=== PATIENT | male | born 1970 | race Caucasian/White ===

== ENCOUNTER 2019-01-16 12:31 | Observation (INO) | payer OTHER ==
--- NOTE | 2019-01-16 12:43 | PDOC ---
History of Present Illness - General Chief Complaint: Pain Stated Complaint: ABD PAIN Time Seen by Provider: 01/16/19 12:40 History Source: Patient Exam Limitations: No Limitations - History of Present Illness Initial Comments: 48 yo m w a pmh of ulcerative colitis, anemia, diverticulitis associated with peritonitis which required a partial colectomy, GERD, pituitary adenoma, vasovagal syncope, and hemorrhoids presents to the [facility] er BIBEMS with the CC of abdominal pain which he believes is a result of taking prednisone. The story goes that the patient was originally diagnosed with a sinus infection a few weeks ago which worsened and ultimately caused the patient to have pneumonia. He admits to recently taking amoxicillin, azithromycin and bactrim in the past few weeks for his sinus infections and pneumonia. The patient also states that he was taking prednisone as part of his PNA treatment and every time he takes prednisone it chews up his stomach and causes him significant gastric reflux pain. The patient states that today he started experiencing multiple episodes of bloody diarrhea which were associated with severe lower abdominal pain without radiation rated 5/10 in intensity right now that was associated with a significant amount of generalized weakness making it difficult for the patient to walk. He also endorses nausea but no emesis. The patient states his Hb was low on Wednesday at 11.4 The patient denies having chest pain, SOB, difficulty breathing, dysuria, frequency, urgency, constipation, back pain, vertigo, headache, blurry vision, neck pain, numbness, tingling or chills. PCP: Dr. Brown from [facility] Pin Cleaner: Dr. Blanton Endo: Dr. Giraldo PSH: Partial colectomy, 3 titanium plates in jaw, deviated septum correction Allergies: NKA, NKDA Social Hx: Drinks recreationally, denies smoking or other substance usage Past History - Past Medical History Allergies/Adverse Reactions: Allergies Allergy/AdvReac Type Severity Reaction Status Date / Time No Known Allergies Allergy Verified 01/16/19 12:38 COPD: No - Suicide/Smoking/Psychosocial Hx Smoking History: Never smoked Have you smoked in the past 12 months: No Information on smoking cessation initiated: No Hx Alcohol Use: No Drug/Substance Use Hx: No Review of Systems - Review of Systems Able to Perform ROS?: Yes Comments:: CONSTITUTIONAL: Present: Fever, fatigue Absent: no chills EYES: Absent: visual changes ENT: Absent: ear pain, no sore throat CARDIOVASCULAR: Absent: chest pain, no palpitations RESPIRATORY: Absent: cough, no SOB GI: Present: Abdominal pain, nausea, bloody diarrhea Absent: no vomiting, no constipation GENITOURINARY: Absent: dysuria, no frequency, no hematuria MUSKULOSKELETAL: Absent: back pain, no arthralgia, no myalgia SKIN: Absent: rash NEURO: Absent: headache *Physical Exam - Vital Signs Last Vital Signs Temp Pulse Resp BP Pulse Ox 97.0 F L 100 H 16 99/78 100 01/16/19 12:31 01/16/19 12:31 01/16/19 12:31 01/16/19 12:31 01/16/19 12:31 - Physical Exam Comments: GENERAL: The patient is lying down on his right side in pain. Well-appearing, well- nourished. HEENT: Normocephalic, atraumatic. PERRL, EOM intact. CARDIOVASCULAR: Tachycardic rate. Normal S1, S2. Regular rhythm. PULMONARY: No evidence of respiratory distress. Lungs clear to auscultation bilaterally. No wheezing, rales or rhonchi. ABDOMEN: Generalized lower abdominal discomfort to palpation. Normal bowel sounds. Abdomen is still soft and non-distended. No rebound or guarding. No organomegaly. Surgical scar in left lower abdomen. EXTREMITIES: Normal ROM in all four extremities. No gross deformities. SKIN: Warm, dry. No rash NEUROLOGICAL: No focal neurological deficits. Rectal Exam: positive: hemorrhoids Moderate Sedation - Procedure Monitoring Vital Signs: Procedure Monitoring Vital Signs Temperature 97.0 F L 01/16/19 12:31 Pulse Rate 100 H 01/16/19 12:31 Respiratory Rate 16 01/16/19 12:31 Blood Pressure 99/78 18 12:31 O2 Sat by Pulse Oximetry (%) 100 01/16/19 12:31 ED Treatment Course - LABORATORY CBC & Chemistry Diagram: 01/16/19 13:30 01/16/19 13:30 Medical Decision Making - Medical Decision Making 48 yo m w a pmh of ulcerative colitis, anemia, diverticulitis associated with peritonitis which required a partial colectomy, GERD, pituitary adenoma, vasovagal syncope, and hemorrhoids presents to the [facility] er BIBEMS with the CC of abdominal pain which he believes is a result of taking prednisone. The story goes that the patient was originally diagnosed with a sinus infection a few weeks ago which worsened and ultimately caused the patient to have pneumonia. He admits to recently taking amoxicillin, azithromycin and bactrim in the past few weeks for his sinus infections and pneumonia. The patient also states that he was taking prednisone as part of his PNA treatment and every time he takes prednisone it chews up his stomach and causes him significant gastric reflux pain. The patient states that today he started experiencing multiple episodes of bloody diarrhea which were associated with severe lower abdominal pain without radiation rated 5/10 in intensity right now that was associated with a significant amount of generalized weakness making it difficult for the patient to walk. He also endorses nausea but no emesis. The patient states his Hb was low on Wednesday at 11.4 VS: Tachyardic, borderline hypotensive. DDx IBNLT: UC exacerbation, colitis, diverticulitis, infectious bloody diarrhea - C- Diff vs Camply vs salmo vs shige vs Ecoli [id number], anemia, peritonitis, perforation, obstruction, hemorrhoids Plan: Labs, Urine, CTAP, CXR, EKG, IV hydration, GI consult, Analgesia, jodee, pepcid, maalox, heme occult, C-diff, re-asses. CTAP shows concentric rectal wall thickening, and mildly dilated fluid filled small bowel loop in the lower pelvis. Patient has not experienced a bloody bowel movement since admission to the ER. - He has a stool cup for us to send in to test for C-diff Will admit patient to Med/Surg for further care to rule out C-diff and observe and take care of patient *DC/Admit/Observation/Transfer Diagnosis at time of Disposition: Ulcerative colitis - Discharge Dispostion Condition at time of disposition: Stable Decision to Admit order: Yes - Referrals - Patient Instructions - Post Discharge Activity
[2019-01-16] MEDS ORDERED: SODIUM CHLORIDE 1,000 ML IV STA (12:56)
[2019-01-16] MEDS ORDERED: FAMOTIDINE 20 MG/50 ML IVPB 20 MG/50 ML MG IVPB ONE ×2 (12:56→13:31)
[2019-01-16] MEDS ORDERED: ACETAMINOPHEN 1000 MG/100 ML VIAL (NON FORMULARY) IVPB ONE (12:56)
[2019-01-16] MEDS ORDERED: ONDANSETRON 4 MG/2 ML VIAL IVPUSH ONE (12:57)
[2019-01-16] MEDS ORDERED: ACETAMINOPHEN INJECTION 100 ML IVPB ONE (13:06)
[2019-01-16] MEDS ORDERED: ONDANSETRON 4 MG/2 ML VIAL ONE ×2 (13:06→13:31)
[2019-01-16] MEDS ORDERED: MAG HYDROX/AL HYDROX/SIMETH 30 ML UNIT-DOSE CUP PO ONE (13:20)
[2019-01-16] MEDS ORDERED: MAG HYDROX/AL HYDROX/SIMETH 30 ML UNIT-DOSE CUP ONE (13:30)
[2019-01-16 14:03] LABS: BASO % 0.1 % (0-2.0); EOS % 0.1 % (0-4.5); HEMATOCRIT 35.1 % (35.4-49); LYMPH % 4.2 % (8-40); MCH 28.3 pg (25.7-33.7); MCHC 34.1 g/dl (32.0-35.9); MEAN CELL VOLUME 82.9 fl (80-96); MEAN PLT VOLUME 8.4 fl (7.5-11.1); NEUT % 83.6 % (42.8-82.8); PLATELET COUNT 293 K/MM3 (134-434); RBC 4.23 M/mm3 (4.00-5.60); WHITE BLOOD COUNT 3.6 K/mm3 (4.0-10.0)
[2019-01-16 14:30] LABS: ALBUMIN 2.8 g/dl (3.4-5.0); ALK PHOS 47 U/L (45-117); ANION GAP 9 MMOL/L (8-16); BILIRUBIN,TOTAL 0.4 mg/dL (0.2-1); BLOOD UREA NITROGEN 24 mg/dL (7-18); CALCIUM 7.9 mg/dL (8.5-10.1); CHLORIDE 108 mmol/L (98-107); CO2 23 mmol/L (21-32); GLUCOSE,RANDOM 111 mg/dL (74-106); LIPASE 74 U/L (73-393); SGOT/AST 16 U/L (15-37); SGPT/ALT 26 U/L (13-61); SODIUM 140 mmol/L (136-145); TOT PROT 6.2 g/dl (6.4-8.2)
--- NOTE | 2019-01-16 14:30 | PDOC ---
Attending Attestation - HPI HPI: 01/16/19 14:43 The patient is a 48 year old male, with a significant past medical history of ulcerative colitis (multiple flare-ups per month, not all requiring hospitalization), anemia, diverticulitis (associated with peritonitis s/p a partial colectomy), GERD, pituitary adenoma, vasovagal syncope, and hemorrhoids , who presents to the emergency department with, abdominal pain and bloody diarrhea. Patient notes recently taking azithromycin, amoxicillin, and bactrim for a sinus infection and is now currently on a tapering Prednisone for pneumonia. He denies any recent fevers, chills, headache or dizziness. He denies any recent chest pain or shortness of breath. He denies any recent dysuria, frequency, urgency or hematuria. Allergies: NKDA Past surgical history: Partial colectomy, 3 titanium plates in jaw, deviated septum correction Social History: Social alcohol usage. Nonsmoker. Denies recreational drug use. Primary Care Physician: Dr. Brown from [facility] Chemistry Quality Control Analyst: Dr. Blanton - Physicial Exam PE: 01/16/19 14:44 GENERAL: Awake, alert, and fully oriented, in no acute distress HEAD: No signs of trauma NECK: Normal ROM +ABDOMEN: Pain to the LLQ, RLQ, and periumbilical region. Well-healed abdominal scars. Soft. No guarding, no rebound. No masses EXTREMITIES: Normal range of motion, no edema. No clubbing or cyanosis. No cords, erythema, or tenderness NEUROLOGICAL: Cranial nerves II through XII grossly intact. Normal speech. SKIN: Warm, Dry, normal turgor, no rashes or lesions noted. <Russell Ridley - Last Filed: 01/16/19 14:43> - Resident Resident Name: Rufino Lewis - ED Attending Attestation I have performed the following: I have examined & evaluated the patient, The case was reviewed & discussed with the resident, I agree w/resident's findings & plan, Exceptions are as noted - Medical Decision Making 01/16/19 14:18 A portion of this note was documented by scribe services under my direction. I have reviewed the details of the note, within reason, and agree with the documentation with the following case summary and management plan written by me. Patient treated in the ED. Nursing notes are reviewed and incorporated into the medical decision-making. Vital signs reviewed. Peripheral IV access obtained by the nurse, laboratory studies are drawn and sent, reviewed and interpreted by myself. Vital Signs Temp Pulse Resp BP Pulse Ox 97.0 F L 100 H 16 99/78 100 01/16/19 12:31 01/16/19 12:31 01/16/19 12:31 01/16/19 12:31 01/16/19 12:31 48-year-old male with past medical history of ulcerative colitis presents with lower abdominal pain and bloody stools. Approximately 1 month ago, the patient started develop a sinus infection the progressively led to a pneumonia. The patient has been treated with multiple antibiotics including Bactrim, amoxicillin and so forth. The patient's currently on a prednisone taper and has been taking it but reports that its worsening his acid reflux. Today, the patient started noticing notable stool episodes with blood in them as well as lower abdominal pain. Denies fevers. Came to the ER for further evaluation. Differential includes ulcer colitis flareup, C. difficile, colitis, other acute abdominal pathologies, diverticular bleed, diverticulitis. The patient should obtain a CAT scan abdomen pelvis and labs. If hemoglobin is less than 7, consider transfusion. The patient may benefit from an observation given the blood in the stools and potential ulcer colitis flare. 01/16/19 16:33 CBC, BMP 01/16/19 13:30 01/16/19 13:30 CMP Sodium 140 mmol/L (136-145) 01/16/19 13:30 Potassium 4.0 mmol/L (3.5-5.1) 01/16/19 13:30 Chloride 108 mmol/L (98-107) H 01/16/19 13:30 Carbon Dioxide 23 mmol/L (21-32) 01/16/19 13:30 Anion Gap 9 MMOL/L (8-16) 01/16/19 13:30 BUN 24 mg/dL (7-18) H 01/16/19 13:30 Creatinine 1.0 mg/dL (0.55-1.3) 01/16/19 13:30 Creat Clearance w eGFR > 60 (>60) 01/16/19 13:30 Random Glucose 111 mg/dL (74-106) H 01/16/19 13:30 Calcium 7.9 mg/dL (8.5-10.1) L 01/16/19 13:30 Total Bilirubin 0.4 mg/dL (0.2-1) 01/16/19 13:30 AST 16 U/L (15-37) 01/16/19 13:30 ALT 26 U/L (13-61) 01/16/19 13:30 Alkaline Phosphatase 47 U/L (45-117) 01/16/19 13:30 Total Protein 6.2 g/dl (6.4-8.2) L 01/16/19 13:30 Albumin 2.8 g/dl (3.4-5.0) L 01/16/19 13:30 Lipase 74 U/L (73-393) 01/16/19 13:30 Labs reviewed. Pt's imaging pending. Pt signed out to Dr. Bashir for further evaluation and management. <Tej Montoya - Last Filed: 01/16/19 16:33> Attestations - Attestations 01/16/19 14:45 Documentation prepared by Russell Ridley, acting as medical health researcher for Tej Montoya MD. <Russell Ridley - Last Filed: 01/16/19 14:43>
[2019-01-16 14:46] LABS: INR 1.2 (0.83-1.09); PROTHROMBIN TIME (PATIENT) 14.2 SEC (9.7-13.0)
[2019-01-16 15:34] LABS: URINE APPEARANCE SLCLOUDY; URINE BILIRUBIN NEGATIVE (<2.0 mg/dL); URINE COLOR YELLOW; URINE GLUCOSE (UA) NEGATIVE (NEGATIVE); URINE KETONE NEGATIVE (NEGATIVE); URINE LEUK ESTERASE NEGATIVE (NEGATIVE); URINE NITRITE NEGATIVE (NEGATIVE); URINE PROTEIN 1+ (NEGATIVE); URINE UROBILINOGEN NEGATIVE mg/dL (0.2-1.0)
[2019-01-16 15:58] LABS: URINE MUCUS MANY
[2019-01-16] MEDS ORDERED: SODIUM CHLORIDE 0.9% 500 ML INFUS.BAG IV ONE (18:33)
--- NOTE | 2019-01-16 20:57 | HP ---
Admitting History and Physical - Primary Care Physician PCP: Abdon Chun - Admission History of Present Illness: 48 yo m w a pmh of ulcerative colitis, anemia, diverticulitis associated with peritonitis which required a partial colectomy, GERD, pituitary adenoma, vasovagal syncope, and hemorrhoids presents to the [facility] er BIBEMS with the CC of abdominal pain which he believes is a result of taking prednisone. The story goes that the patient was originally diagnosed with a sinus infection a few weeks ago which worsened and ultimately caused the patient to have pneumonia. He admits to recently taking amoxicillin, azithromycin and bactrim in the past few weeks for his sinus infections and pneumonia. The patient also states that he was taking prednisone as part of his PNA treatment and every time he takes prednisone it chews up his stomach and causes him significant gastric reflux pain. The patient states that today he started experiencing multiple episodes of bloody diarrhea which were associated with severe lower abdominal pain without radiation rated 5/10 in intensity right now that was associated with a significant amount of generalized weakness making it difficult for the patient to walk. - Past Medical History Gastrointestinal: Yes: Ulcerative Colitis - Smoking History Smoking history: Never smoked Have you smoked in the past 12 months: No - Alcohol/Substance Use Hx Alcohol Use: No Home Medications - Allergies Allergies/Adverse Reactions: Allergies Allergy/AdvReac Type Severity Reaction Status Date / Time No Known Allergies Allergy Verified 01/16/19 12:38 - Home Medications Home Medications: Ambulatory Orders Budesonide [Uceris (Nonformulary)] 9 mg PO DAILY 01/16/19 Ferrous Sulfate [Slow Fe] 45 mg PO DAILY 01/16/19 Prednisone [Deltasone] 20 mg PO DAILY 01/16/19 Physical Examination Vital Signs: Vital Signs Temperature 99.4 F 01/16/19 18:06 Pulse Rate 85 01/16/19 18:06 Respiratory Rate 18 01/16/19 18:06 Blood Pressure 102/63 01/16/19 18:06 O2 Sat by Pulse Oximetry (%) 99 01/16/19 18:06 Constitutional: Yes: No Distress HENT: Yes: Atraumatic Neck: Yes: Supple Cardiovascular: Yes: Regular Rate and Rhythm Respiratory: Yes: CTA Bilaterally Gastrointestinal: Yes: Normal Bowel Sounds Extremities: Yes: WNL Edema: No Peripheral Pulses WNL: Yes Neurological: Yes: Alert, Oriented Labs: CBC, BMP 01/16/19 13:30 01/16/19 13:30 Imaging - Results Cat Scan: Report Reviewed Problem List - Problems (1) Ulcerative colitis Assessment/Plan: npo for now c diff pending gi eval ivf Code(s): K51.90 - ULCERATIVE COLITIS, UNSPECIFIED, WITHOUT COMPLICATIONS (2) Diarrhea Code(s): R19.7 - DIARRHEA, UNSPECIFIED (3) Rectal bleeding Assessment/Plan: monitor Code(s): K62.5 - HEMORRHAGE OF ANUS AND RECTUM Assessment/Plan Laboratory Tests 01/16/19 01/16/19 01/16/19 13:30 13:30 13:30 WBC 3.6 L RBC 4.23 Hgb 12.0 Hct 35.1 L MCV 82.9 MCH 28.3 MCHC 34.1 RDW 15.0 Plt Count 293 MPV 8.4 Absolute Neuts (auto) 3.0 Neutrophils % 83.6 H Lymphocytes % 4.2 L Monocytes % 12.0 H Eosinophils % 0.1 Basophils % 0.1 Nucleated RBC % 0 PT with INR 14.20 H INR 1.20 H Sodium 140 Potassium 4.0 Chloride 108 H Carbon Dioxide 23 Anion Gap 9 BUN 24 H Creatinine 1.0 Creat Clearance w eGFR > 60 Random Glucose 111 H Lactic Acid Calcium 7.9 L Total Bilirubin 0.4 AST 16 ALT 26 Alkaline Phosphatase 47 Total Protein 6.2 L Albumin 2.8 L Lipase 74 Urine Color Urine Appearance Urine pH Ur Specific [place] Urine Protein Urine Glucose (UA) Urine Ketones Urine Blood Urine Nitrite Urine Bilirubin Urine Urobilinogen Ur Leukocyte Esterase Urine WBC (Auto) Urine RBC (Auto) Urine Mucus Blood Type Antibody Screen 01/16/19 01/16/19 01/16/19 13:30 15:00 15:24 WBC RBC Hgb Hct MCV MCH MCHC RDW Plt Count MPV Absolute Neuts (auto) Neutrophils % Lymphocytes % Monocytes % Eosinophils % Basophils % Nucleated RBC % PT with INR INR Sodium Potassium Chloride Carbon Dioxide Anion Gap BUN Creatinine Creat Clearance w eGFR Random Glucose Lactic Acid 2.1 H Calcium Total Bilirubin AST ALT Alkaline Phosphatase Total Protein Albumin Lipase Urine Color Yellow Urine Appearance Slcloudy Urine pH 5.0 Ur Specific [place] 1.027 Urine Protein 1+ H Urine Glucose (UA) Negative Urine Ketones Negative Urine Blood Negative Urine Nitrite Negative Urine Bilirubin Negative Urine Urobilinogen Negative Ur Leukocyte Esterase Negative Urine WBC (Auto) 2 Urine RBC (Auto) 1 Urine Mucus Many Blood Type O POSITIVE Antibody Screen Negative Active Medications Generic Name Dose Route Start Last Admin Trade Name Freq PRN Reason Stop Dose Admin Sodium Chloride 1,000 mls @ 100 mls/hr 01/16/19 21:00 01/17/19 06:36 Normal Saline - IV 100 mls/hr ASDIR GILBERTO Administration Morphine Sulfate 2 mg 01/16/19 21:02 01/16/19 22:29 Morphine Sulfate IVPUSH 2 mg Q4H PRN Administration PAIN LEVEL 4 - 6 Non-Formulary Medication 9 mg 01/17/19 10:00 Budesonide PO DAILY COUNT INCLUDES THE [facility] Ondansetron HCl 4 mg 01/16/19 21:02 Zofran Injection IVPB Q4H PRN NAUSEA AND/OR VOMITING Pantoprazole Sodium 40 mg 01/17/19 21:45 Protonix Iv IVPUSH DAILY COUNT INCLUDES THE [facility] Prednisone 20 mg 01/17/19 10:00 01/17/19 10:51 Deltasone - PO Not Given DAILY GILBERTO
[2019-01-16] MEDS ORDERED: MORPHINE SULFATE 2 MG/ML VIAL IVPUSH PRN (21:02)
[2019-01-16] MEDS ORDERED: ONDANSETRON 4 MG/2 ML VIAL IVPB PRN (21:02)
[2019-01-16] MEDS: SODIUM CHLORIDE 1,000 ML IV SCH (21:40)
[2019-01-17] MEDS ORDERED: ZOLPIDEM TARTRATE 5 MG TABLET ONE (01:30)
[2019-01-17] MEDS ORDERED: ZOLPIDEM TARTRATE 5 MG TABLET PO ONE ×2 (01:30→21:45)
[2019-01-17 03:10] VITALS: BMI 25.2
[2019-01-17] MEDS: SODIUM CHLORIDE 1,000 ML IV SCH (06:36)
[2019-01-17 07:35] LABS: BASO % 0.3 % (0-2.0); EOS % 1.9 % (0-4.5); HEMATOCRIT 27.9 % (35.4-49); HEMOGLOBIN 9.3 GM/dL (11.7-16.9); LYMPH % 23.6 % (8-40); MCH 27.8 pg (25.7-33.7); MCHC 33.3 g/dl (32.0-35.9); MEAN CELL VOLUME 83.5 fl (80-96); MEAN PLT VOLUME 8.1 fl (7.5-11.1); MONO % 14.6 % (3.8-10.2); NEUT % 59.6 % (42.8-82.8); PLATELET COUNT 208 K/MM3 (134-434); RBC 3.34 M/mm3 (4.00-5.60); RDW 15.4 % (11.9-15.9); WHITE BLOOD COUNT 2.6 K/mm3 (4.0-10.0)
[2019-01-17 08:41] LABS: BLOOD UREA NITROGEN 14 mg/dL (7-18); CREATININE 0.9 mg/dL (0.55-1.3); GLUCOSE,RANDOM 77 mg/dL (74-106); SODIUM 140 mmol/L (136-145)
[2019-01-17 08:42] LABS: ALBUMIN 2.3 g/dl (3.4-5.0); ALK PHOS 41 U/L (45-117); ANION GAP 7 MMOL/L (8-16); BILIRUBIN,TOTAL 0.8 mg/dL (0.2-1); CHLORIDE 108 mmol/L (98-107); CO2 25 mmol/L (21-32); POTASSIUM 3.7 mmol/L (3.5-5.1); SGOT/AST 9 U/L (15-37); SGPT/ALT 19 U/L (13-61); TOT PROT 5.1 g/dl (6.4-8.2)
[2019-01-17] MEDS: predniSONE 20 MG TABLET (UD) PO SCH (10:51)
--- NOTE | 2019-01-17 11:04 | EKG ---
Test Reason : Blood Pressure : / mmHG Vent. Rate : 099 BPM Atrial Rate : 099 BPM P-R Int : 138 ms QRS Dur : 086 ms QT Int : 320 ms P-R-T Axes : 050 -05 023 degrees QTc Int : 410 ms NORMAL SINUS RHYTHM NONSPECIFIC T WAVE ABNORMALITY ABNORMAL ECG NO PREVIOUS ECGS AVAILABLE Confirmed by MD PUJA, RERE ([id number]) on 01/17/2019 11:04:01 AM Referred By: Confirmed By:RERE LUO MD
--- NOTE | 2019-01-17 12:19 | CON.ID ---
Consult Consult Specialty:: infectious diseases - Past Medical History Gastrointestinal: Yes: Ulcerative Colitis - Alcohol/Substance Use Hx Alcohol Use: No - Smoking History Smoking history: Never smoked Have you smoked in the past 12 months: No Home Medications - Allergies Allergies/Adverse Reactions: Allergies Allergy/AdvReac Type Severity Reaction Status Date / Time No Known Allergies Allergy Verified 01/16/19 12:38 - Home Medications Home Medications: Ambulatory Orders Budesonide [Uceris (Nonformulary)] 9 mg PO DAILY 01/16/19 Ferrous Sulfate [Slow Fe] 45 mg PO DAILY 01/16/19 Prednisone [Deltasone] 20 mg PO DAILY 01/16/19 Physical Exam Vital Signs: Vital Signs Temperature 97.7 F 01/17/19 10:00 Pulse Rate 83 01/17/19 10:00 Respiratory Rate 18 01/17/19 10:00 Blood Pressure 126/79 01/17/19 10:00 O2 Sat by Pulse Oximetry (%) 99 01/16/19 18:06 Labs: CBC, BMP 01/17/19 05:30 01/17/19 05:30
--- NOTE | 2019-01-17 13:52 | CON.GI ---
Consult Consult Specialty:: GI Referred by:: Dr. Chun Reason for Consultation:: diarrhea - History of Present Illness Chief Complaint: diarrhea History of Present Illness: 48M admitted for evaluation of what he describes as heartburn and diarrhea. He has a history od ulcerative colitis affecting the sigmoind colon. He has had this diagnosis since 2005. He follows with Fruit Worker Dr. Mando Blanton. Mr. Carter explains that since october he has been on three separate 10 day courses of antibiotics for sinus and upper respiratory tract infections ( amoxicillin, bactrum and azithromycin). He was then diagnosed with PNA and has been on a prednisone taper over the last few days. He stated that he began experiencing reflux as well as copious watery diarrhea over the last three days. There was blood tibge to the BM's. He did not take prednisone yesterday because he was coming to the hospital. He is also maintained on Uceris for his ulcerative colitis. He denies abdominal pain. He has had no diarrhea today. He was noted to be leukopenic as well as anemic (has a history of anemia). He showed me recent blood work on his phone that revealed WBC 7.4. He denies heartburn currently. There is no family history of colorectal cancer or other GI malignancy. CT scan on admission revealed a dilated loop of small bowel. - History Source History Provided By: Patient, Medical Record - Past Medical History Gastrointestinal: Yes: Diverticulitis, Diverticulosis, Ulcerative Colitis ( Affecting sigmoid colon) Heme/Onc: Yes: Anemia - Past Surgical History Past Surgical History: Yes: Colectomy (partial colectomy secondary to perforated diverticulitis), Colostomy (with reversal) - Alcohol/Substance Use Hx Alcohol Use: Yes (social) History of Substance Use: reports: None - Smoking History Smoking history: Never smoked Have you smoked in the past 12 months: No - Social History Usual Living Arrangement: With Spouse ADL: Independent Place of : [facility] History of Recent Travel: No Home Medications - Allergies Allergies/Adverse Reactions: Allergies Allergy/AdvReac Type Severity Reaction Status Date / Time No Known Allergies Allergy Verified 01/16/19 12:38 - Home Medications Home Medications: Ambulatory Orders Budesonide [Uceris (Nonformulary)] 9 mg PO DAILY 01/16/19 Ferrous Sulfate [Slow Fe] 45 mg PO DAILY 01/16/19 Prednisone [Deltasone] 20 mg PO DAILY 01/16/19 Family Disease History - Family Disease History Family Disease History: Other: Father (: 60's: Motorcycle accident), Mother (: 51: Lung ca ), Brother (2, healthy), Sister (1, healthy), Son (healthy), Daughter (2, 1 with Kabuki syndrome) Other Family History: No family history of colorectal cancer or other GI malignancy Review of Systems - Review of Systems Constitutional: denies: Fever, Unintentional Wgt. Loss Gastrointestinal: reports: Diarrhea (resolved), Indigestion (resolved). denies : Abdominal Pain, Constipation, Melena, Nausea, Rectal Bleeding, Vomiting, Vomiting Blood Physical Exam-GI Vital Signs: Vital Signs Temperature 97.7 F 01/17/19 10:00 Pulse Rate 83 01/17/19 10:00 Respiratory Rate 18 01/17/19 10:00 Blood Pressure 126/79 01/17/19 10:00 O2 Sat by Pulse Oximetry (%) 99 01/16/19 18:06 Constitutional: Yes: Calm Eyes: No: Sclera Icterus Cardiovascular: Yes: Regular Rate and Rhythm Respiratory: Yes: CTA Bilaterally Gastrointestinal Inspection: Yes: Scars (horizontal left sided colostomy scar, + lone midline vertical surgical scar) ...Auscultate: Yes: Normoactive Bowel Sounds ...Palpate: Yes: Soft. No: Hepatomegaly, Splenomegaly, Tenderness ...Percussion: No: Tympanitic Edema: No (No LE edema) Neurological: Yes: Alert (Alert) Labs: CBC, BMP 01/17/19 05:30 01/17/19 05:30 INR, PTT INR 1.20 (0.83-1.09) H 01/16/19 13:30 Problem List - Problems (1) Ulcerative colitis Assessment/Plan: No further diarrhea or rectal bleeding. Suspect the diarrhea precipitated hemorrhoidal bleeding as opposed to a flare occurring while on both budesonie and prerdnisone. Given Abx and corticosteroid history, agree with R/O of C. Diff Advance diet Continue budesonide. Budesonide can have systemic cotricosteroid effect despite it being a 1st pass hepatic metabolism drug. Unclear if concomitant prednisone should be continued. Management of corticosteroid therapy per PMD Advised follow-up with his administrative officer Dr. Mando Blanton upon discharge Code(s): K51.90 - ULCERATIVE COLITIS, UNSPECIFIED, WITHOUT COMPLICATIONS (2) Leukopenia Assessment/Plan: Taneshaith normocytic anemia Evaluation per PMD Code(s): D72.819 - DECREASED WHITE BLOOD CELL COUNT, UNSPECIFIED
--- NOTE | 2019-01-17 18:14 | PN ---
Progress Note, Physician History of Present Illness: doing well no more rectal bleeding - Current Medication List Current Medications: Active Medications Sodium Chloride (Normal Saline -) 1,000 mls @ 100 mls/hr IV ASDIR [facility] Last Admin: 01/17/19 06:36 Dose: 100 mls/hr Morphine Sulfate (Morphine Sulfate) 2 mg IVPUSH Q4H PRN PRN Reason: PAIN LEVEL 4 - 6 Last Admin: 01/16/19 22:29 Dose: 2 mg Non-Formulary Medication (Budesonide) 9 mg PO DAILY [facility] Ondansetron HCl (Zofran Injection) 4 mg IVPB Q4H PRN PRN Reason: NAUSEA AND/OR VOMITING Pantoprazole Sodium (Protonix Iv) 40 mg IVPUSH DAILY [facility] Prednisone (Deltasone -) 20 mg PO DAILY [facility] Last Admin: 01/17/19 10:51 Dose: Not Given - Objective Vital Signs: Vital Signs Temperature 98.6 F 01/17/19 16:47 Pulse Rate 89 01/17/19 16:47 Respiratory Rate 20 01/17/19 16:47 Blood Pressure 131/81 01/17/19 16:47 O2 Sat by Pulse Oximetry (%) 99 01/16/19 18:06 Constitutional: Yes: No Distress HENT: Yes: Atraumatic Neck: Yes: Supple Cardiovascular: Yes: Regular Rate and Rhythm Respiratory: Yes: CTA Bilaterally Gastrointestinal: Yes: Normal Bowel Sounds Extremities: Yes: WNL Peripheral Pulses WNL: Yes Neurological: Yes: Alert, Oriented Labs: CBC, BMP 01/17/19 05:30 01/17/19 05:30 INR, PTT INR 1.20 (0.83-1.09) H 01/16/19 13:30 Problem List - Problems (1) Ulcerative colitis Assessment/Plan: stable cdiff stool pending Code(s): K51.90 - ULCERATIVE COLITIS, UNSPECIFIED, WITHOUT COMPLICATIONS (2) Diarrhea Code(s): R19.7 - DIARRHEA, UNSPECIFIED (3) Rectal bleeding Assessment/Plan: monitor Code(s): K62.5 - HEMORRHAGE OF ANUS AND RECTUM
[2019-01-17] MEDS: PANTOPRAZOLE SODIUM 40 MG VIAL IVPUSH SCH (21:46)
[2019-01-18] MEDS: SODIUM CHLORIDE 1,000 ML IV SCH (02:05)
--- NOTE | 2019-01-18 08:27 | PN ---
Progress Note, Physician History of Present Illness: patient stable doing well no complaints - Current Medication List Current Medications: Active Medications Sodium Chloride (Normal Saline -) 1,000 mls @ 100 mls/hr IV ASDIR [facility] Last Admin: 01/18/19 02:05 Dose: 100 mls/hr Morphine Sulfate (Morphine Sulfate) 2 mg IVPUSH Q4H PRN PRN Reason: PAIN LEVEL 4 - 6 Last Admin: 01/16/19 22:29 Dose: 2 mg (Budesonide 9 Mg) Patient's Own Medication (Non- Formulary) 9 mg PO DAILY [facility] Ondansetron HCl (Zofran Injection) 4 mg IVPB Q4H PRN PRN Reason: NAUSEA AND/OR VOMITING Pantoprazole Sodium (Protonix Iv) 40 mg IVPUSH DAILY [facility] Last Admin: 01/17/19 21:46 Dose: 40 mg Prednisone (Deltasone -) 20 mg PO DAILY [facility] Last Admin: 01/17/19 10:51 Dose: Not Given - Objective Vital Signs: Vital Signs Temperature 98.6 F 01/18/19 06:20 Pulse Rate 84 01/18/19 06:20 Respiratory Rate 01/18/19 06:20 Blood Pressure 137/87 01/18/19 06:20 O2 Sat by Pulse Oximetry (%) 100 01/18/19 04:00 Constitutional: Yes: No Distress, Calm Cardiovascular: Yes: Regular Rate and Rhythm Respiratory: Yes: Regular, CTA Bilaterally Gastrointestinal: Yes: Normal Bowel Sounds, Soft Musculoskeletal: Yes: WNL Extremities: Yes: WNL Neurological: Yes: Alert, Oriented Psychiatric: Yes: Alert, Oriented Labs: CBC, BMP 01/17/19 05:30 01/17/19 05:30 INR, PTT INR 1.20 (0.83-1.09) H 01/16/19 13:30 Assessment/Plan Problem List - Problems (1) Ulcerative colitis Code(s): K51.90 - ULCERATIVE COLITIS, UNSPECIFIED, WITHOUT COMPLICATIONS (2) Diarrhea Code(s): R19.7 - DIARRHEA, UNSPECIFIED (3) Rectal bleeding Code(s): K62.5 - HEMORRHAGE OF ANUS AND RECTUM Assessment/Plan will continue to monitor off of anything no dirrhoea await for cdiff rest as per the team
[2019-01-18] MEDS ORDERED: PT OWN MED DRAWER 7, Y5N ONE ×2 (09:06→16:47)
[2019-01-18] MEDS: predniSONE 20 MG TABLET (UD) PO SCH ×2 (09:15→09:21)
[2019-01-18] MEDS: PANTOPRAZOLE SODIUM 40 MG VIAL IVPUSH SCH (09:15)
[2019-01-18] MEDS ORDERED: BUDESONIDE 9 MG PO SCH (10:00)
--- NOTE | 2019-01-18 10:31 | PN ---
Progress Note, Physician History of Present Illness: Pt seen/examined at bedside, feeling better, one bm this am more formed, possible small amount of bright blood per pt, though not seen by nursing staff. Denies abdominal pain, n/v. Appetite better. - Current Medication List Current Medications: Active Medications Sodium Chloride (Normal Saline -) 1,000 mls @ 100 mls/hr IV ASDIR [facility] Last Admin: 01/18/19 02:05 Dose: 100 mls/hr Morphine Sulfate (Morphine Sulfate) 2 mg IVPUSH Q4H PRN PRN Reason: PAIN LEVEL 4 - 6 Last Admin: 01/16/19 22:29 Dose: 2 mg (Budesonide 9 Mg) Patient's Own Medication (Non- Formulary) 9 mg PO DAILY [facility] Last Admin: 01/18/19 09:15 Dose: 9 mg Ondansetron HCl (Zofran Injection) 4 mg IVPB Q4H PRN PRN Reason: NAUSEA AND/OR VOMITING Pantoprazole Sodium (Protonix Iv) 40 mg IVPUSH DAILY [facility] Last Admin: 01/18/19 09:15 Dose: 40 mg Prednisone (Deltasone -) 20 mg PO DAILY [facility] Last Admin: 01/18/19 09:21 Dose: Not Given - Objective Vital Signs: Vital Signs Temperature 98.6 F 01/18/19 06:20 Pulse Rate 84 01/18/19 06:20 Respiratory Rate 20 01/18/19 06:20 Blood Pressure 137/87 01/18/19 06:20 O2 Sat by Pulse Oximetry (%) 100 01/18/19 04:00 Constitutional: Yes: Well Nourished, No Distress, Calm Cardiovascular: Yes: WNL, Regular Rate and Rhythm Respiratory: Yes: WNL, Regular, CTA Bilaterally Gastrointestinal: Yes: WNL, Normal Bowel Sounds, Soft, Other (Abd soft, nt, nd + healed midline/LLQ incisional scars) Labs: CBC, BMP 01/17/19 05:30 01/17/19 05:30 INR, PTT INR 1.20 (0.83-1.09) H 01/16/19 13:30 Problem List - Problems (1) Ulcerative colitis Assessment/Plan: 48 yo male h/o longstanding ulcerative colitis on budesonide (not currently on other therapies) following with Dr. Blanton presenting with heartburn and diarrhea in setting of multiple recent courses of antibiotics and prednisone taper for URTIs. Feeling better, less frequent bm, more formed possible small amount of blood. No abdominal pain or fevers. -Continue to monitor Hb -Monitor bms and for evidence of bleeding -Diet as tolerated -Continue budesonide 9mg po daily -Await C difficile results -Defer prednisone taper to primary team for mgmt of URTI (was started as outpt) Code(s): K51.90 - ULCERATIVE COLITIS, UNSPECIFIED, WITHOUT COMPLICATIONS
[2019-01-18 14:16] VITALS: BP 127/75; PULSE 78; TEMP 98.2
--- NOTE | 2019-01-18 14:31 | DS ---
Physical Examination Vital Signs: Vital Signs Temperature 98.2 F 01/18/19 14:14 Pulse Rate 78 01/18/19 14:14 Respiratory Rate 18 01/18/19 14:14 Blood Pressure 127/75 01/18/19 14:14 O2 Sat by Pulse Oximetry (%) 100 01/18/19 04:00 Constitutional: Yes: No Distress HENT: Yes: Atraumatic Neck: Yes: Supple Cardiovascular: Yes: Regular Rate and Rhythm Respiratory: Yes: CTA Bilaterally Gastrointestinal: Yes: Normal Bowel Sounds Extremities: Yes: WNL Edema: No Peripheral Pulses WNL: Yes Neurological: Yes: Alert, Oriented Labs: CBC, BMP 01/17/19 05:30 01/17/19 05:30 Discharge Summary Reason For Visit: ULCERATIVE COLITIS Current Active Problems Diarrhea (Acute) Leukopenia (Acute) Rectal bleeding (Acute) Ulcerative colitis (Acute) Condition: Stable - Instructions Diet, Activity, Other Instructions: see your doctor next week ask your doctor about prednisone Referrals: Mando Blanton [Non Staff, Medical] - Disposition: HOME - Home Medications Comprehensive Discharge Medication List: Ambulatory Orders Budesonide [Uceris (Nonformulary)] 9 mg PO DAILY 01/16/19 Ferrous Sulfate [Slow Fe] 45 mg PO DAILY 01/16/19 Prednisone [Deltasone] 20 mg PO DAILY 01/16/19 ...hold dc home
== END 2019-01-18 17:09 | disposition home or self-care (01) ==
LOC: JER 12:31 → JERBED 18:19 → INTOOBSV 18:19 → J8W 20:55
PROVIDERS: ADMIT Internal Medicine; ATTEND Internal Medicine
PROC: 3E033NZ Introduction of Analgesics, Hypnotics, Sedatives into Peripheral Vein, Percutaneous Approach (ICD-10-PCS; principal; 2019-01-16)
PROC: 3E033GC Introduction of Other Therapeutic Substance into Peripheral Vein, Percutaneous Approach (ICD-10-PCS; 2019-01-16)
PROC: 3E0337Z Introduction of Electrolytic and Water Balance Substance into Peripheral Vein, Percutaneous Approach (ICD-10-PCS; 2019-01-16)
DX: K51.90 Ulcerative colitis, unspecified, without complications (principal); R19.7 Diarrhea, unspecified; K62.5 Hemorrhage of anus and rectum; D72.819 Decreased white blood cell count, unspecified
CPT/HCPCS: 36415; 71045-TC-FY; 74177-TC; 80053; 81003; 81015; 82272; 83605; 83690; 85025; 85610; 86850; 86900; 86901; 87324; 87449; 93005; 93010; 99283-25; G0378; J0131; J7030; Q9967

== ENCOUNTER 2020-01-28 12:24 | Inpatient (IN) | payer OTHER ==
--- NOTE | 2020-01-28 13:21 | PDOC ---
History of Present Illness - General Chief Complaint: Syncope/Near Syncope Stated Complaint: Syncope/Near Syncope Time Seen by Provider: 01/28/20 12:32 - History of Present Illness Initial Comments: 01/28/20 13:22 49 y/o M with PMH of ulcerative colitis cx with peritonitis s/p ex-lap and hemicolectomy with reversal of ostomy, vasovagal syncope, stable pituitary adenoma and anemia brought in to the ED by his brother because of an episode of pre-syncope. Pt was in line at a coffee shop when he developped blurry vision then felt lightheaded. At that point, pt crunched down then sat down on a bench with help from a bystander. He then became nauseous and tremulous. Pt denied any GUEVARA, palpitations, chest pain, SOB,FND, change in urination/BM prior to the episode. Pt explains that this event was similar to his other vasovagal syncope episodes (3 over the last 20 years) however per pt's brother this episode was accompanied by lethargic speech x2 lasting a minute or two. No facial drop ever noted by him or brother. Allergies: none PMH: as above PSH: as above and dental plate s/p fall after vasovagal syncope in the past, lumbar laminectomy Social Hx: denies ROS: Constitutional: no fever,no chills HEENT: no throat pain, no dysphagia Cardiovascular: no chest pain, no palpitations Respiratory: no cough, no shortness of breath Gastrointestinal: no Nausea and vomiting Genitourinary: no urgency,no dysuria Musculoskeletal: no myalgia, no arthralgia Skin: no bruising Neurologic: no weakness Psych: no agitation, no anxiety PE: VSS NIHSS 0 GEN: NAD Neuro: CN 2-12 intact,, motor strength 5/5 in all muscle groups, sensation intact throughout, 2+ reflexes in U&L extremities, gait normal HEENT: PERRLA, moist membrane, clear conjunctiva NECK: no JVD CHEST:vesicular breath sounds b/l no wheezing, no rales appreciated HEART:RRR, no murmur, rubs or gallop ABDOMEN: + BS, soft, NTND Extremities: 2+ pulses, no edema SKIN: no bruises MSK: no arthralgia, no joint tenderness Assessment: vasovagal syncope vs TIA vs seizure activity Plan: head CT w/o contrast, CBC, CMP, cardiac profile, ekg, UA, TSH, orthostatic VS 01/28/20 14:[address] negative for bleed or other acute pathology EKG sinus at 65, nl axis, no acute st/t wave findings, incomplete RBBB, q waves septally which are age indeterminate 01/28/20 14:45 CBC,CMP WBC 4.7 K/mm3 (4.0-10.0) 01/28/20 13:10 RBC 4.73 M/mm3 (4.00-5.60) 01/28/20 13:10 Hgb 11.8 GM/dL (11.7-16.9) 01/28/20 13:10 Hct 36.3 % (35.4-49) D 01/28/20 13:10 MCV 76.8 fl (80-96) L 01/28/20 13:10 MCH 25.0 pg (25.7-33.7) L D 01/28/20 13:10 MCHC 32.6 g/dl (32.0-35.9) 01/28/20 13:10 RDW 16.6 % (11.9-15.9) H 01/28/20 13:10 Plt Count 219 K/MM3 (134-434) 01/28/20 13:10 MPV 8.2 fl (7.5-11.1) 01/28/20 13:10 Absolute Neuts (auto) 3.4 K/mm3 (1.5-8.0) 01/28/20 13:10 Neutrophils % 71.3 % (42.8-82.8) 01/28/20 13:10 Lymphocytes % 15.7 % (8-40) D 01/28/20 13:10 Monocytes % 12.2 % (3.8-10.2) H 01/28/20 13:10 Eosinophils % 0.0 % (0-4.5) D 01/28/20 13:10 Basophils % 0.8 % (0-2.0) 01/28/20 13:10 Nucleated RBC % 0 % (0-0) 01/28/20 13:10 Sodium 142 mmol/L (136-145) 01/28/20 13:10 Potassium 3.8 mmol/L (3.5-5.1) 01/28/20 13:10 Chloride 109 mmol/L (98-107) H 01/28/20 13:10 Carbon Dioxide 26 mmol/L (21-32) 01/28/20 13:10 Anion Gap 7 MMOL/L (8-16) L 01/28/20 13:10 BUN 17.3 mg/dL (7-18) 01/28/20 13:10 Creatinine 1.0 mg/dL (0.55-1.3) 01/28/20 13:10 Est GFR (CKD-EPI)AfAm 100.55 01/28/20 13:10 Est GFR (CKD-EPI)NonAf 86.76 01/28/20 13:10 POC Glucometer 122 UNITS (80-120) 01/28/20 13:08 Random Glucose 112 mg/dL (74-106) H 01/28/20 13:10 Calcium 8.2 mg/dL (8.5-10.1) L 01/28/20 13:10 Total Bilirubin 0.5 mg/dL (0.2-1) 01/28/20 13:10 AST 24 U/L (15-37) 01/28/20 13:10 ALT 24 U/L (13-61) 01/28/20 13:10 Alkaline Phosphatase 47 U/L (45-117) 01/28/20 13:10 Creatine Kinase 197 U/L (26-308) 01/28/20 13:10 Creatine Kinase Index 1.9 % (0.0-5.0) 01/28/20 13:10 CK-MB (CK-2) 3.8 ng/mL (0.5-3.6) H 01/28/20 13:10 Troponin I < 0.02 ng/ml (0.00-0.05) 01/28/20 13:10 Total Protein 6.9 g/dl (6.4-8.2) 01/28/20 13:10 Albumin 3.2 g/dl (3.4-5.0) L 01/28/20 13:10 TSH 1.54 uIU/ml (0.358-3.74) 01/28/20 13:10 Chronic anemia with microcytosis. mild hyperglycemia. cardiac profile negative. TSH normal UA pending Utox negative 01/28/20 14:53 admission microblog sent. 49 y/o M with PMH of ulcerative colitis cx with peritonitis s/p ex-lap and hemicolectomy with reversal of ostomy, vasovagal syncope, stable pituitary adenoma and anemia presenting with rapidly resolving neurological symptoms admitting to r/o TIA and for further evaluation Pt signed out to admitting team. tPA Exclusion Checklist 0-3hr - Time Elapsed Date last known well: 01/28/20 Time last known well: 12:00 Elaspsed time: 3 Day(s) and 7 Hour(s) and 24 Minutes - Thrombolytic Therapy Candidate Is the patient eligible for Thrombolytic Therapy?: No - Exclusion Criteria 0-3hr SBP greater than 185 or DBP greater than 110mmHg despite tx: No Recent IC/spinal surgery,head trauma or stroke w/in last 3mo: No Hx of previous IC hemorrhage, IC neoplasm, AVM or aneurysm: No Active internal bleeding: No Blding diathesis(low plt ct, inc PTT,INR>1.7 or use of NOAC): No Symptoms suggest subarachnoid hemorrhage: No CT demonstrates multilobar infarct(>1/3 cerebral hemiphere): No Arterial puncture at noncompressible site in previous 7 days: No Blood glucose concentration less than 50mg/dL (2.7mmol/L): No - Relative Exclusion Criteria 0-3h Life expectancy <1yr/severe co-morbid illness/PATROL CONDUCTOR on admit: No : No Patient/family refused: No Rapid improvement: Yes Stroke severity too mild (non-disabling): No Recent acute MA (w/in previous 3 months): No Seizure at onset with postictal residual neuro impairments: No Major surgery or serious trauma w/in previous 14 days: No Recent GI or hemorrhage (w/in previous 21 days): No - Ineligibility reason(s) Reasons No tPA given: See reason(s) noted above NIH Stroke Scale - Last Known Well Date/Time & Onset Date Last Known Well: 01/28/20 Time Last Known Well: 12:00 - Initial Evaluation Level of consciousness: Alert Ask patient the month and their age: Answers both correctly Ask patient to open & close eyes; make fist and let go: Obeys both correctly Best gaze (horizontal eye movement): Normal Visual field testing: No visual field loss Facial paresis (Show teeth/raise eyebrows/close eyes tight): Normal symmetrical movement Motor Function: Left Arm: Normal Motor Function: Right Arm: Normal (extends arm 90 (or 45) degrees for 10 seconds without drift Motor Function: Left Leg: Normal (extends leg 30 degrees for 5 seconds without drift) Motor Function: Right Leg: Normal (extends leg 30 degrees for 5 seconds without drift) Limb Ataxia: No ataxia Sensory(Use pinprick test arms,legs,trunk,face/side to side): Normal Best language (Describe picture, name items, read sentences): No Aphasia Dysarthria (read several words): Normal articulation Extinction and Inattention: No abnormality - Total Score NIH Stroke Scale Score: 0 Past History - Past Medical History Allergies/Adverse Reactions: Allergies Allergy/AdvReac Type Severity Reaction Status Date / Time No Known Drug Allergies Allergy Verified 01/28/20 13:39 shrimp Allergy Verified 01/28/20 13:38 Home Medications: Ambulatory Orders Ferrous Sulfate [Slow Fe] 45 mg PO DAILY 01/16/19 Budesonide [Uceris] 2 mg TP BID 01/28/20 Clomiphene Citrate 50 mg PO Q4D 01/28/20 Anemia: Yes COPD: No GI Disorders: Yes (Hemorrhoid, Diverticulitis, Ulcerative colitis, GERD) - Immunization History Immunization Up to Date: Yes - Psycho Social/Smoking Cessation Hx Smoking History: Never smoked Have you smoked in the past 12 months: No Hx Alcohol Use: No Drug/Substance Use Hx: No *Physical Exam - Vital Signs Last Vital Signs Temp Pulse Resp BP Pulse Ox 97.7 F 74 18 125/86 99 01/28/20 12:33 01/28/20 12:33 01/28/20 12:33 01/28/20 12:33 01/28/20 12:33 ED Treatment Course - LABORATORY CBC & Chemistry Diagram: 01/29/20 06:25 01/29/20 06:25 - ADDITIONAL ORDERS Additional order review: Laboratory Results 01/28/20 13:08 POC Glucometer 122 01/28/20 13:08 POC Glucometer 122 - RADIOLOGY Radiology Studies Ordered: Category Date Time Status HEAD CT WITHOUT CONTRAST [CT] Stat CT Scan 01/28/20 12:57 Ordered Medical Decision Making - Medical Decision Making 49 y/o M with PMH of ulcerative colitis cx with peritonitis s/p ex-lap and hemicolectomy with reversal of ostomy, vasovagal syncope, stable pituitary adenoma and anemia presenting with rapidly resolving neurological symptoms admitting to r/o TIA and for further evaluation Pt signed out to admitting team. Discharge - Discharge Information Problems reviewed: Yes Clinical Impression/Diagnosis: TIA (transient ischemic attack) Condition: Improved Disposition: HOME - Admission Yes - Follow up/Referral - Patient Discharge Instructions - Post Discharge Activity
--- NOTE | 2020-01-28 13:21 | PDOC ---
Documentation entered by Bib Henry SCRIBE, acting as scribe for Flor Diana DO. Flor Diana DO: This documentation has been prepared by the Carl yancey Daniel, SCRIBE, under my direction and personally reviewed by me in its entirety. I confirm that the documentation accurately reflects all work, treatment, procedures, and medical decision making performed by me. Attending Attestation - Resident Resident Name: RichyKadenSommer - ED Attending Attestation I have performed the following: I have examined & evaluated the patient, The case was reviewed & discussed with the resident, I agree w/resident's findings & plan, Exceptions are as noted - HPI HPI: 01/28/20 13:00 The patient is a 49 year old male with a past medical history of ulcerative colitis, colostomy reversal, anemia, pituitary adenoma, and multiple episodes of vasovagal syncope (patient fell and fractured his jaw during his last episode ) here today for evaluation of a presyncopal episode. The patient reports that he developed blurry vision, felt dizzy, and slumped down this morning but was then helped to a chair. Patients brother reports that the patient began to mumble during this episode and became concerned. Patient also notes feeling nauseous. Patient denies headache. Denies fever, chills. Denies chest pain, shortness of breath. Denies vomiting, diarrhea, abdominal pain. Allergies: NKA PCP: Bib Brown - Physicial Exam PE: 01/28/20 13:16 Constitutional: Awake, alert, oriented. No acute distress. Head: Normocephalic. Atraumatic Eyes: PERRL. EOMI. Conjunctivae are not pale. ENT: Mucous membranes are moist and intact. Posterior pharynx without exudates or erythema. Uvula midline. Neck: Supple. Full ROM. No lymphadenopathy. Cardiovascular: Regular rate. Regular rhythm. S1, S2 regular. Distal pulses are 2+ and symmetric. Pulmonary/Chest: No evidence of respiratory distress. Clear to auscultation bilaterally No wheezing, rales or rhonchi. Abdominal: Soft and non-distended. There is no tenderness. No rebound, guarding or rigidity. No organomegaly. No palpable masses. Good bowel sounds. Back: No CVA tenderness. Musculoskeletal: No edema. No cyanosis. No clubbing. Full range of motion in all extremities. No calf tenderness. Radial/pedal pulses are intact and 2+ bilaterally Skin: Skin is warm and dry. No petechiae. No purpura. Neurological: Alert and oriented to person, place, and time. Cranial nerves II -XII are grossly intact. Normal speech. Strength is grossly symmetric. No sensory deficits. Psychiatric: Good eye contact. Normal interaction, affect and behavior. - Medical Decision Making 01/28/20 13:18 I, Dr. Flor Diana, DO, attest that this document has been prepared under my direction and personally reviewed by me in its entirety. I further attest, that it accurately reflects all work, treatment, procedures and medical decision -making performed by me. a/p: 49yo male with near syncope this am and lethargic/mumbled speech x 2 episodes -spech episodes lasted minutes -currently resolved -concern for TIA vs near syncope -glu 122 -will send labs, ekg, cxr, head ct -will start ivf hydration -current NIHSS = 0 -no tpa given rapid resolution of symptoms -will need obs vs admission -hx of pituitary mass -all docs - pmd, cards, neuro, endo at [facility] -prior syncope resulted in jaw fx with plates -will monitor and reassess 01/28/20 13:[address] without acute findings cbc reviewed and stable 01/28/20 14:22 resident sent microblog 01/28/20 14:37 resident discussed the case with Dr. Calloway who will see patient in consult resident discussed the case with JACOB who accepts pt to service Heart Score/ECG Review - ECG Intrepretation Comment:: 01/28/20 13:57 sinus at 65, nl axis, no acute st/t wave findings, incomplete RBBB, q waves septally which are age indeterminate
[2020-01-28 13:36] LABS: BASO % 0.8 % (0-2.0); HEMATOCRIT 36.3 % (35.4-49); HEMOGLOBIN 11.8 GM/dL (11.7-16.9); LYMPH % 15.7 % (8-40); MCHC 32.6 g/dl (32.0-35.9); MEAN CELL VOLUME 76.8 fl (80-96); MEAN PLT VOLUME 8.2 fl (7.5-11.1); MONO % 12.2 % (3.8-10.2); NEUT % 71.3 % (42.8-82.8); PLATELET COUNT 219 K/MM3 (134-434); RBC 4.73 M/mm3 (4.00-5.60); RDW 16.6 % (11.9-15.9); WHITE BLOOD COUNT 4.7 K/mm3 (4.0-10.0)
[2020-01-28] MEDS ORDERED: SODIUM CHLORIDE 1,000 ML IV STA (14:06)
[2020-01-28 14:07] LABS: ALBUMIN 3.2 g/dl (3.4-5.0); ALK PHOS 47 U/L (45-117); ANION GAP 7 MMOL/L (8-16); BILIRUBIN,TOTAL 0.5 mg/dL (0.2-1); BLOOD UREA NITROGEN 17.3 mg/dL (7-18); CALCIUM 8.2 mg/dL (8.5-10.1); CHLORIDE 109 mmol/L (98-107); CO2 26 mmol/L (21-32); GLUCOSE,RANDOM 112 mg/dL (74-106); POTASSIUM 3.8 mmol/L (3.5-5.1); SGOT/AST 24 U/L (15-37); SGPT/ALT 24 U/L (13-61); SODIUM 142 mmol/L (136-145); TOT PROT 6.9 g/dl (6.4-8.2)
[2020-01-28 15:16] LABS: URINE APPEARANCE Clear; URINE BILIRUBIN Negative (NEGATIVE); URINE COLOR Yellow; URINE GLUCOSE (UA) Negative (NEGATIVE); URINE KETONE Negative (NEGATIVE); URINE LEUK ESTERASE Negative (NEGATIVE); URINE NITRITE Negative (NEGATIVE); URINE PROTEIN 1+ (NEGATIVE); URINE UROBILINOGEN 0.2 mg/dL (0.2-1.0)
[2020-01-28 15:21] LABS: HYALINE CASTS 7.8 /lpf (0-8); URINE BACTERIA 4.1 /hpf (NEGATIVE); URINE RBC 3.4 /hpf (0-4); URINE WBC 1.8 /hpf (0-5)
[2020-01-28 15:26] LABS: COCAINE, UR NEGATIVE ng/ml (CUTOFF=300); METHADONE, UR NEGATIVE ng/ml (CUTOFF=300); OPIATES, URI NEGATIVE ng/ml (CUTOFF=300); PHENCYCLIDINE,URINE NEGATIVE ng/ml (CUTOFF=25); URINE AMPHETAMINES NEGATIVE ng/ml (CUTOFF=500); URINE BARBITURATES NEGATIVE ng/ml (CUTOFF=200); URINE BENZODIAZEPINES NEGATIVE ng/ml (CUTOFF=200)
[2020-01-28 15:29] LABS: CHOLESTEROL 165 mg/dL (50-200); HDL CHOLESTEROL 36 mg/dL (40-60); LDL CHOLESTEROL (ONLY SJRH) 112 mg/dL (5-100); TRIGLYCERIDES 75 mg/dL (0-150)
[2020-01-28 18:06] VITALS: BMI 27.9
[2020-01-28] MEDS ORDERED: ACETAMINOPHEN 325 MG TABLET (FP) PO ONE (19:58)
--- NOTE | 2020-01-28 21:18 | HP ---
CHIEF COMPLAINT: dizziness, weakness, pre-syncope HISTORY OF PRESENT ILLNESS: 49 M h/o ulcerative colitis s/p perforation needing hemicolectomy in 2005, chronic iron def. anemia,GERD, pituitary adenoma, episodes of vasovagal syncope , and hemorrhoids presents w/ episode of pre-syncope while out shopping. Patient endorses leaving early in AM, did not eat or drink except for a cup of coffee and was out all day with his brother until he felt lightheaded lasting several minutes, which then progressed to weakness, blurry vision, warranting him to lay on the mall floor to rest due to feeling as if he was going to pass out, during that time his brother noticed him "speaking slowly" but denied overt slurring of speech or facial droop. Patient endorses similar episode in the past last occurring 3 years ago, endorses it to be from vasovagal syncope. Normally works out and exerts himself, describes himself to be in good shape, had exercise stress test few years back was unremarkable. In ED pt. received 1L bolus endorsed already feeling better. ER course was notable for: (1) 1L bolus (2) negative orthostatics (3) Recent Travel: denies PAST MEDICAL HISTORY: as above PAST SURGICAL HISTORY: hemicolectomy 2005 Social History: Smoking:denies Alcohol:social Drugs: denies Allergies No Known Drug Allergies Allergy (Verified 01/28/20 13:39) shrimp Allergy (Verified 01/28/20 13:38) HOME MEDICATIONS: Home Medications Medication Instructions Recorded Budesonide [Uceris (Nonformulary)] 9 mg PO DAILY 01/16/19 Ferrous Sulfate [Slow Fe] 45 mg PO DAILY 01/16/19 predniSONE [Deltasone] 20 mg PO DAILY 01/16/19 Budesonide [Uceris] 2 mg TP BID 01/28/20 Clomiphene Citrate 50 mg PO Q4D 01/28/20 PHYSICAL EXAMINATION Vital Signs - 24 hr 01/28/20 01/28/20 01/28/20 12:33 13:00 14:10 Temperature 97.7 F Pulse Rate 74 Pulse Rate [ 69 Left Radial] Pulse Rate [ 70 Right side Sitting] Pulse Rate [ 74 Right side Standing] Pulse Rate [ 70 Right side Supine] Respiratory 18 20 Rate Blood Pressure 125/86 Blood Pressure 135/96 [Right Arm] Blood Pressure 139/106 H [Right side Sitting] Blood Pressure 143/109 H [Right side Standing] Blood Pressure 147/100 [Right side Supine] O2 Sat by Pulse 99 97 Oximetry (%) 01/28/20 01/28/20 01/28/20 16:14 17:00 17:52 Temperature 98.1 F 97.1 F L 97.1 F L Pulse Rate 69 69 Pulse Rate [ 73 Left Radial] Pulse Rate [ Right side Sitting] Pulse Rate [ Right side Standing] Pulse Rate [ Right side Supine] Respiratory 15 20 15 Rate Blood Pressure 156/94 156/94 Blood Pressure 157/105 H [Right Arm] Blood Pressure [Right side Sitting] Blood Pressure [Right side Standing] Blood Pressure [Right side Supine] O2 Sat by Pulse 100 98 Oximetry (%) Objective: Constitutional: Yes: No Distress HENT: Yes: Atraumatic Neck: Yes: Supple Cardiovascular: Yes: Regular Rate and Rhythm Respiratory: Yes: CTA Bilaterally Gastrointestinal: Yes: Normal Bowel Sounds Extremities: Yes: WNL Edema: No Peripheral Pulses WNL: Yes Neurological: Yes: Alert, Oriented Orthostatics: negative (having gotten 1 bolus in ED) Laboratory Results - last 24 hr 01/28/20 01/28/20 01/28/20 13:08 13:10 13:10 WBC 4.7 RBC 4.73 Hgb 11.8 Hct 36.3 D MCV 76.8 L MCH 25.0 L D MCHC 32.6 RDW 16.6 H Plt Count 219 MPV 8.2 Absolute Neuts (auto) 3.4 Neutrophils % 71.3 Lymphocytes % 15.7 D Monocytes % 12.2 H Eosinophils % 0.0 D Basophils % 0.8 Nucleated RBC % 0 Sodium 142 Potassium 3.8 Chloride 109 H Carbon Dioxide 26 Anion Gap 7 L BUN 17.3 Creatinine 1.0 Est GFR (CKD-EPI)AfAm 100.55 Est GFR (CKD-EPI)NonAf 86.76 POC Glucometer 122 Random Glucose 112 H Hemoglobin A1c % Calcium 8.2 L Total Bilirubin 0.5 AST 24 ALT 24 Alkaline Phosphatase 47 Creatine Kinase 197 Creatine Kinase Index 1.9 CK-MB (CK-2) 3.8 H Troponin I < 0.02 Total Protein 6.9 Albumin 3.2 L Triglycerides 75 Cholesterol 165 Total LDL Cholesterol 112 H HDL Cholesterol 36 L TSH Urine Color Urine Appearance Urine pH Ur Specific [place] Urine Protein Urine Glucose (UA) Urine Ketones Urine Blood Urine Nitrite Urine Bilirubin Urine Urobilinogen Ur Leukocyte Esterase Urine WBC (Auto) Urine RBC (Auto) Urine Casts (Auto) U Epithel Cells (Auto) Urine Bacteria (Auto) Opiates Screen Methadone Screen Barbiturate Screen Phencyclidine Screen Ur Amphetamines Screen MDMA (Ecstasy) Screen Benzodiazepines Screen Cocaine Screen U Marijuana (THC) Screen 01/28/20 01/28/20 01/28/20 13:10 13:10 14:55 WBC RBC Hgb Hct MCV MCH MCHC RDW Plt Count MPV Absolute Neuts (auto) Neutrophils % Lymphocytes % Monocytes % Eosinophils % Basophils % Nucleated RBC % Sodium Potassium Chloride Carbon Dioxide Anion Gap BUN Creatinine Est GFR (CKD-EPI)AfAm Est GFR (CKD-EPI)NonAf POC Glucometer Random Glucose Hemoglobin A1c % 5.0 Calcium Total Bilirubin AST ALT Alkaline Phosphatase Creatine Kinase Creatine Kinase Index CK-MB (CK-2) Troponin I Total Protein Albumin Triglycerides Cholesterol Total LDL Cholesterol HDL Cholesterol TSH 1.54 Urine Color Yellow Urine Appearance Clear Urine pH 7.0 D Ur Specific [place] 1.025 Urine Protein 1+ H Urine Glucose (UA) Negative Urine Ketones Negative Urine Blood Negative Urine Nitrite Negative Urine Bilirubin Negative Urine Urobilinogen 0.2 Ur Leukocyte Esterase Negative Urine WBC (Auto) 1.8 Urine RBC (Auto) 3.4 Urine Casts (Auto) 7.8 U Epithel Cells (Auto) 1.0 Urine Bacteria (Auto) 4.1 Opiates Screen Methadone Screen Barbiturate Screen Phencyclidine Screen Ur Amphetamines Screen MDMA (Ecstasy) Screen Benzodiazepines Screen Cocaine Screen U Marijuana (THC) Screen 01/28/20 01/28/20 14:55 20:05 WBC RBC Hgb Hct MCV MCH MCHC RDW Plt Count MPV Absolute Neuts (auto) Neutrophils % Lymphocytes % Monocytes % Eosinophils % Basophils % Nucleated RBC % Sodium Potassium Chloride Carbon Dioxide Anion Gap BUN Creatinine Est GFR (CKD-EPI)AfAm Est GFR (CKD-EPI)NonAf POC Glucometer Random Glucose Hemoglobin A1c % Calcium Total Bilirubin AST ALT Alkaline Phosphatase Creatine Kinase Creatine Kinase Index CK-MB (CK-2) Troponin I < 0.02 Total Protein Albumin Triglycerides Cholesterol Total LDL Cholesterol HDL Cholesterol TSH Urine Color Urine Appearance Urine pH Ur Specific [place] Urine Protein Urine Glucose (UA) Urine Ketones Urine Blood Urine Nitrite Urine Bilirubin Urine Urobilinogen Ur Leukocyte Esterase Urine WBC (Auto) Urine RBC (Auto) Urine Casts (Auto) U Epithel Cells (Auto) Urine Bacteria (Auto) Opiates Screen Negative Methadone Screen Negative Barbiturate Screen Negative Phencyclidine Screen Negative Ur Amphetamines Screen Negative MDMA (Ecstasy) Screen Negative Benzodiazepines Screen Negative Cocaine Screen Negative U Marijuana (THC) Screen Negative ASSESSMENT/PLAN: 49 M h/o ulcerative colitis s/p colonic perforation needing michael-colectomy in 2005, chronic iron def. anemia, GERD, pituitary adenoma, episodes of vasovagal syncope, and hemorrhoids presents w/ episode of pre-syncope. Pre-syncopal episode denies witnessed seizure-activity, denies CP/SOB preceding event, endorses he didn't drink his usual regimen of water and only had 1 cup of coffee prior to event ?Vasovagal episode v.s. cardiac arrhythmia Orthostatics neg. after he received 1L bolus Echo/Carotids, CT-head neg. Send A1c/lipids/TSH Cardiology evaluation Neuro eval for ?slurred speech UC sp hemicolectomy denies diarrhea, hematochezia, mucus in stool takes topical Budosenide restart chronic MOE send anemia panel will likely need IV venofer, will wait on iron/TIBC, ferritin GERD PPI PRN ?Pituitary adenoma VS stable, no clinical signs of adrenal excess, CT brain unremarkable monitor as OP Tele monitoring DVT ppx: Heparin SC Visit type - Emergency Visit Emergency Visit: Yes ED Registration Date: 01/28/20 Care time: The patient presented to the Emergency Department on the above date and was hospitalized for further evaluation of their emergent condition. - New Patient This patient is new to me today: Yes Date on this admission: 01/28/20 - Critical Care Critical Care patient: No
[2020-01-28] MEDS: HEPARIN NA (PORCINE) 5,000 UNITS/ML 1ML VIAL SQ SCH (21:40)
[2020-01-28] MEDS ORDERED: MELATONIN 5 MG TABLETS PO ONE (23:26)
[2020-01-29] MEDS ORDERED: diphenhydrAMINE HCL 25 MG CAPSULE (FP) PO ONE (01:24)
[2020-01-29] MEDS: HEPARIN NA (PORCINE) 5,000 UNITS/ML 1ML VIAL SQ SCH (06:02)
[2020-01-29 06:59] LABS: BASO % 0.1 % (0-2.0); EOS % 0.4 % (0-4.5); HEMATOCRIT 36.4 % (35.4-49); HEMOGLOBIN 11.7 GM/dL (11.7-16.9); LYMPH % 26.1 % (8-40); MCH 24.8 pg (25.7-33.7); MCHC 32.3 g/dl (32.0-35.9); MEAN CELL VOLUME 76.8 fl (80-96); MEAN PLT VOLUME 8.3 fl (7.5-11.1); MONO % 12.3 % (3.8-10.2); NEUT % 61.1 % (42.8-82.8); PLATELET COUNT 222 K/MM3 (134-434); RBC 4.74 M/mm3 (4.00-5.60); RDW 16.6 % (11.9-15.9); WHITE BLOOD COUNT 3.8 K/mm3 (4.0-10.0)
[2020-01-29 07:52] LABS: BILIRUBIN,TOTAL 0.4 mg/dL (0.2-1); BLOOD UREA NITROGEN 12.5 mg/dL (7-18); CREATININE 0.9 mg/dL (0.55-1.3); POTASSIUM 4.1 mmol/L (3.5-5.1); TOT PROT 6.5 g/dl (6.4-8.2)
--- NOTE | 2020-01-29 09:26 | EKG ---
Test Reason : Blood Pressure : / mmHG Vent. Rate : 065 BPM Atrial Rate : 065 BPM P-R Int : 166 ms QRS Dur : 096 ms QT Int : 412 ms P-R-T Axes : 051 -05 -02 degrees QTc Int : 428 ms NORMAL SINUS RHYTHM SEPTAL INFARCT , AGE UNDETERMINED ABNORMAL ECG WHEN COMPARED WITH ECG OF 16-JAN-2019 13:06, VENT. RATE HAS DECREASED BY 34 BPM SEPTAL INFARCT IS NOW PRESENT NONSPECIFIC T WAVE ABNORMALITY NO LONGER EVIDENT IN LATERAL LEADS Confirmed by Cristiane Pemberton ([id number]) on 01/29/2020 9:26:18 AM Referred By: Confirmed By:Cristiane Pemberton
--- NOTE | 2020-01-29 10:06 | CON.NEURO ---
Consult - Past Medical History Gastrointestinal: Yes: Ulcerative Colitis - Past Surgical History Past Surgical History: Yes: Colectomy (partial colectomy secondary to perforated diverticulitis), Colostomy (with reversal) - Alcohol/Substance Use Hx Alcohol Use: No History of Substance Use: reports: None - Smoking History Smoking history: Never smoked Have you smoked in the past 12 months: No - Social History Usual Living Arrangement: With Spouse ADL: Independent History of Recent Travel: No Home Medications - Allergies Allergies/Adverse Reactions: Allergies Allergy/AdvReac Type Severity Reaction Status Date / Time No Known Drug Allergies Allergy Verified 01/28/20 13:39 shrimp Allergy Verified 01/28/20 13:38 - Home Medications Home Medications: Ambulatory Orders Ferrous Sulfate [Slow Fe] 45 mg PO DAILY 01/16/19 Budesonide [Uceris] 2 mg TP BID 01/28/20 Clomiphene Citrate 50 mg PO Q4D 01/28/20 Physical Exam-Neuro Vital Signs: Vital Signs Temperature 97.9 F 01/29/20 01:39 Pulse Rate 70 01/29/20 05:20 Respiratory Rate 20 01/29/20 05:20 Blood Pressure 147/86 01/29/20 05:20 O2 Sat by Pulse Oximetry (%) 97 01/28/20 21:00 Labs: CBC, BMP 01/29/20 06:25 01/29/20 06:25 Assessment/Plan cc Feeling of dizziness HPI 49 year old male history of Pituitary adenoma, UC S/P Hemicolectomy in 2005 , anemia. He came with feeling of dizziness and almsot passing out. His ct head was unremarkable. Patient has mri of brain done one year ago. He is being followed by endocrinolgoist as outpatient. He is also being work up for cardiac point of view for syncope. There was no focal neurological symptoms. PAST MEDICAL HISTORY: as above PAST SURGICAL HISTORY: hemicolectomy 2005 Social History: Smoking:denies Alcohol:social Drugs: denies Allergies No Known Drug Allergies Allergy (Verified 01/28/20 13:39) shrimp Allergy (Verified 01/28/20 13:38) HOME MEDICATIONS: Home Medications Medication Instructions Recorded Budesonide [Uceris (Nonformulary)] 9 mg PO DAILY 01/16/19 Ferrous Sulfate [Slow Fe] 45 mg PO DAILY 01/16/19 predniSONE [Deltasone] 20 mg PO DAILY 01/16/19 Budesonide [Uceris] 2 mg TP BID 01/28/20 Clomiphene Citrate 50 mg PO Q4D 01/28/20 ROS,FH,SH reviewed in chart NEUROLOGICAL EXAMINATION Alert oriented x 3, neck is supple vss, afebrile eomi, pupils reactive no face asymmetry, vf normal by confrontation moving all ext sensation is normal ct head unremarkable Assessment/Plan 49 year old male history of Pituitary adenoma, UC S/P Hemicolectomy in 2005 , anemia. He came with episode of syncope, neuro exam and ct head unrmarkable. Most likley Syncopal episode, unlikley to be stroke or tia. Plan: an routine eeg can be obtained if he stays in hospital mri of brain can be done outpatient continue current work up Thanking you so much Johnson Calloway MD
--- NOTE | 2020-01-29 11:25 | ECHO ---
Name: LILY, CARMEN Exam:Adult Echocardiogram Study Date: 01/29/2020 10:30 AM Age: 49 yrs Reason For Study: SYNCOPE Height: 70 in Weight: 190 lb BSA: 2.0 m2 MMode/2D Measurements & Calculations IVSd: 1.4 cm Ao root diam: 3.3 cm LVIDd: 3.9 cm LA dimension: 3.2 cm LVIDs: 2.6 cm ACS: 1.9 cm LVPWd: 1.3 cm EDV(Teich): 64.7 ml LVOT diam: 2.0 cm ESV(Teich): 24.1 ml RV S Farooq: 19.3 cm/sec Doppler Measurements & Calculations MV E max farooq: 59.7 cm/sec Ao V2 max: 109.5 cm/sec MV A max farooq: 72.6 cm/sec Ao max P.8 mmHg MV E/A: 0.82 Ao V2 mean: 85.4 cm/sec MV dec time: 0.23 sec Ao mean P.0 mmHg Ao V2 VTI: 19.2 cm HUBER(I,D): 2.3 cm2 HUBER(V,D): 2.4 cm2 LV V1 max P.9 mmHg SV(LVOT): 45.2 ml LV V1 mean P.6 mmHg LV V1 max: 84.9 cm/sec LV V1 mean: 58.4 cm/sec LV V1 VTI: 14.6 cm TR max farooq: 177.8 cm/sec PA V2 max: 74.0 cm/sec TR max P.1 mmHg PA max P.2 mmHg Med Peak E' Farooq: 7.6 cm/sec Med E/e': 7.8 Lat Peak E' Farooq: 5.9 cm/sec Lat E/e': 10.1 Procedure Study Quality: Fair. Left Ventricle The left ventricle is normal in size. There is mild concentric left ventricular hypertrophy. The left ventricular ejection fraction is normal. Ejection Fraction = 60-65%. The transmitral spectral Doppler flow pattern is suggestive of impaired LV relaxation. Right Ventricle The right ventricle is normal size. The right ventricular systolic function is normal. Atria Normal left and right atrial size and function. Mitral Valve The mitral valve is grossly normal. There is no mitral regurgitation noted. Tricuspid Valve The tricuspid valve is not well visualized, but is grossly normal. There is trace tricuspid regurgita tion. Aortic Valve There is mild to moderate aortic sclerosis.;. No hemodynamically significant valvular aortic stenosis . No aortic regurgitation is present. Pulmonic Valve The pulmonic valve is not well seen, but is grossly normal. Great Vessels The aortic root is normal size. Pericardium/Pleura There is no pericardial effusion. Fat pad. Interpretation Summary LV: Normal size,mild LVH,normal systolic function,EF 60-65%, impaired relaxation RV: Normal Sclerotic aortic valve . No significant valvular dysfunction. Cristiane Pemberton 01/29/2020 11:25 AM
[2020-01-29 12:07] VITALS: BP 150/80; PULSE 78; TEMP 97.8
--- NOTE | 2020-01-29 14:38 | DS ---
Physical Exam: SUBJECTIVE: Patient seen and examined OBJECTIVE: Vital Signs Period Temp Pulse Resp BP Sys/Guevara Pulse Ox Last 24 Hr 97.1 F-98.1 F 69-82 15-22 145-157/80-105 97-100 PHYSICAL EXAM GENERAL: The patient is awake, alert, and fully oriented, in no acute distress. HEAD: Normal with no signs of trauma. EYES: PERRL, extraocular movements intact, sclera anicteric, conjunctiva clear. ENT: Ears normal, nares patent, oropharynx clear without exudates, moist mucous membranes. NECK: Trachea midline, full range of motion, supple. LUNGS: Breath sounds equal, clear to auscultation bilaterally, no wheezes, no crackles, no accessory muscle use. HEART: Regular rate and rhythm, S1, S2 without murmur, rub or gallop. ABDOMEN: Soft, nontender, nondistended, normoactive bowel sounds, no guarding, no rebound, no hepatosplenomegaly, no masses. EXTREMITIES: 2+ pulses, warm, well-perfused, no edema. NEUROLOGICAL: Cranial nerves II through XII grossly intact. Normal speech, gait not observed. PSYCH: Normal mood, normal affect. SKIN: Warm, dry, normal turgor, no rashes or lesions noted. LABS Laboratory Results - last 24 hr 01/28/20 01/28/20 01/28/20 13:10 13:10 14:55 WBC RBC Hgb Hct MCV MCH MCHC RDW Plt Count MPV Absolute Neuts (auto) Neutrophils % Lymphocytes % Monocytes % Eosinophils % Basophils % Nucleated RBC % Sodium 142 Potassium 3.8 Chloride 109 H Carbon Dioxide 26 Anion Gap 7 L BUN 17.3 Creatinine 1.0 Est GFR (CKD-EPI)AfAm 100.55 Est GFR (CKD-EPI)NonAf 86.76 Random Glucose 112 H Hemoglobin A1c % 5.0 Calcium 8.2 L Iron TIBC Iron Saturation Unsaturated IBC Total Bilirubin 0.5 AST 24 ALT 24 Alkaline Phosphatase 47 Creatine Kinase 197 Creatine Kinase Index 1.9 CK-MB (CK-2) 3.8 H Troponin I < 0.02 Total Protein 6.9 Albumin 3.2 L Triglycerides 75 Cholesterol 165 Total LDL Cholesterol 112 H HDL Cholesterol 36 L Vitamin B12 Urine Color Yellow Urine Appearance Clear Urine pH 7.0 D Ur Specific [place] 1.025 Urine Protein 1+ H Urine Glucose (UA) Negative Urine Ketones Negative Urine Blood Negative Urine Nitrite Negative Urine Bilirubin Negative Urine Urobilinogen 0.2 Ur Leukocyte Esterase Negative Urine WBC (Auto) 1.8 Urine RBC (Auto) 3.4 Urine Casts (Auto) 7.8 U Epithel Cells (Auto) 1.0 Urine Bacteria (Auto) 4.1 Opiates Screen Methadone Screen Barbiturate Screen Phencyclidine Screen Ur Amphetamines Screen MDMA (Ecstasy) Screen Benzodiazepines Screen Cocaine Screen U Marijuana (THC) Screen 01/28/20 01/28/20 01/29/20 14:55 20:05 06:25 WBC 3.8 L RBC 4.74 Hgb 11.7 Hct 36.4 MCV 76.8 L MCH 24.8 L MCHC 32.3 RDW 16.6 H Plt Count 222 MPV 8.3 Absolute Neuts (auto) 2.3 Neutrophils % 61.1 Lymphocytes % 26.1 D Monocytes % 12.3 H Eosinophils % 0.4 D Basophils % 0.1 Nucleated RBC % 0 Sodium Potassium Chloride Carbon Dioxide Anion Gap BUN Creatinine Est GFR (CKD-EPI)AfAm Est GFR (CKD-EPI)NonAf Random Glucose Hemoglobin A1c % Calcium Iron TIBC Iron Saturation Unsaturated IBC Total Bilirubin AST ALT Alkaline Phosphatase Creatine Kinase Creatine Kinase Index CK-MB (CK-2) Troponin I < 0.02 Total Protein Albumin Triglycerides Cholesterol Total LDL Cholesterol HDL Cholesterol Vitamin B12 Urine Color Urine Appearance Urine pH Ur Specific [place] Urine Protein Urine Glucose (UA) Urine Ketones Urine Blood Urine Nitrite Urine Bilirubin Urine Urobilinogen Ur Leukocyte Esterase Urine WBC (Auto) Urine RBC (Auto) Urine Casts (Auto) U Epithel Cells (Auto) Urine Bacteria (Auto) Opiates Screen Negative Methadone Screen Negative Barbiturate Screen Negative Phencyclidine Screen Negative Ur Amphetamines Screen Negative MDMA (Ecstasy) Screen Negative Benzodiazepines Screen Negative Cocaine Screen Negative U Marijuana (THC) Screen Negative 01/29/20 06:25 WBC RBC Hgb Hct MCV MCH MCHC RDW Plt Count MPV Absolute Neuts (auto) Neutrophils % Lymphocytes % Monocytes % Eosinophils % Basophils % Nucleated RBC % Sodium 143 Potassium 4.1 Chloride 111 H Carbon Dioxide 26 Anion Gap 5 L BUN 12.5 Creatinine 0.9 Est GFR (CKD-EPI)AfAm 114.21 Est GFR (CKD-EPI)NonAf 98.54 Random Glucose 88 Hemoglobin A1c % Calcium 8.0 L Iron 20 L TIBC 364 Iron Saturation 5 L Unsaturated IBC 344 H Total Bilirubin 0.4 AST 24 ALT 23 Alkaline Phosphatase 43 L Creatine Kinase Creatine Kinase Index CK-MB (CK-2) Troponin I Total Protein 6.5 Albumin 3.0 L Triglycerides Cholesterol Total LDL Cholesterol HDL Cholesterol Vitamin B12 619 Urine Color Urine Appearance Urine pH Ur Specific [place] Urine Protein Urine Glucose (UA) Urine Ketones Urine Blood Urine Nitrite Urine Bilirubin Urine Urobilinogen Ur Leukocyte Esterase Urine WBC (Auto) Urine RBC (Auto) Urine Casts (Auto) U Epithel Cells (Auto) Urine Bacteria (Auto) Opiates Screen Methadone Screen Barbiturate Screen Phencyclidine Screen Ur Amphetamines Screen MDMA (Ecstasy) Screen Benzodiazepines Screen Cocaine Screen U Marijuana (THC) Screen HOSPITAL COURSE: Patient is a 49 year old male with a past medical history of ulcerative colitis s/p colonic performation needing michael-colectomy in 2005, chronic iron deficiency anemia, GERD, pituitary adenoma, episodes of vasovagal syncope and hemorrhoids admitted for syncope. Syncope likely in the setting of dehydration as patient had poor oral intake on the day of event. EKG noted sinus rhythm with age indeterminate septal infarct. Patient was advised to start aspirin but refused as he stated that it made him feel worse and had increased bleeding episodes. He was advised to follow up with his skein washer. Patient stated his symptoms improved with fluid administration. Echocardiogram noted normal size and function of LV and RV, EF 60-65%, impaired relaxation, sclerotic aortic valve. Carotid dopplers showed minimal atherosclerotic disease with no hemodynamically significant stenosis and forward flow in vertebral arteries. Head CT with no acute pathology. Patient was advised to follow up with his PCP and skein washer. Patient was advised of the plan and was in agreement. Patient was discharged in stable medical condition. Date of Admission:01/28/20 Date of Discharge: 01/29/20 Minutes to complete discharge: 35 Discharge Summary Problems reviewed: Yes Reason For Visit: TIA Condition: Improved - Instructions Diet, Activity, Other Instructions: You were admitted after you had a near fainting episode. You had an EKG ( electrical exam of the heart) which showed a normal rhythm but some changes which may indicate some damage in the vessels of the heart. You are recommenced to follow up with your primary care physician and skein washer. You are recommended to have a stress test with your skein washer. You had carotid duplex (ultrasound of your arteries in the neck) which did not show any significant blockages. You had an echocardiogram (ultrasound of your heart) which showed normal size, function of your heart, with some impaired relaxation and a sclerotic aortic valve. You should follow up with your skein washer for these findings. Your symptoms resolved and you were stable for discharge. You were recommended to start on aspirin, however you refused and you were recommended to follow up with your skein washer. MEDICATIONS Please continue to take all of your home medications as prescribed. REFERRALS Please follow up with your primary care physician, Dr. Brown, Please follow up with your skein washer, Dr. Pacheco, within 1 week for further testing(stress test), repeat EKG SPECIAL INSTRUCTIONS If you have further symptoms of chest pain, shortness of breath, lightheadedness , dizziness, fevers, or any other general feelings of unwellness, please call 911 or go your nearest emergency room. Referrals: Rodrick Pacheco [Non Staff, Medical] - 1 Week Bib Brown [Primary Care Provider] - 1 Week Disposition: HOME - Home Medications Comprehensive Discharge Medication List: Ambulatory Orders Ferrous Sulfate [Slow Fe] 45 mg PO DAILY 01/16/19 Budesonide [Uceris] 2 mg TP BID 01/28/20 Clomiphene Citrate 50 mg PO Q4D 01/28/20 Problem List - Problems (1) Ulcerative colitis Code(s): K51.90 - ULCERATIVE COLITIS, UNSPECIFIED, WITHOUT COMPLICATIONS (2) Syncope Code(s): R55 - SYNCOPE AND COLLAPSE This patient is new to me today: Yes Date on this admission: 01/29/20 Emergency Visit: Yes ED Registration Date: 01/28/20 Care time: The patient presented to the Emergency Department on the above date and was hospitalized for further evaluation of their emergent condition. Critical Care patient: No - Discharge Referral Referred to [facility] No
--- NOTE | 2020-01-29 17:12 | PN ---
Teaching Attending Note Name of Resident: Alfie Spain ATTENDING PHYSICIAN STATEMENT I saw and evaluated the patient. I reviewed the resident's note and discussed the case with the resident. I agree with the resident's findings and plan as documented. SUBJECTIVE: OBJECTIVE: Vital Signs Temperature 97.8 F 01/29/20 10:00 Pulse Rate 78 01/29/20 10:00 Respiratory Rate 22 H 01/29/20 10:00 Blood Pressure 150/80 01/29/20 10:00 O2 Sat by Pulse Oximetry (%) 97 01/29/20 09:00 GENERAL: The patient is awake, alert, and fully oriented, in no acute distress. HEAD: Normal with no signs of trauma. EYES: PERRL, extraocular movements intact, sclera anicteric, conjunctiva clear. ENT: Ears normal, nares patent, oropharynx clear without exudates, moist mucous membranes. NECK: Trachea midline, full range of motion, supple. LUNGS: Breath sounds equal, clear to auscultation bilaterally, no wheezes, no crackles, no accessory muscle use. HEART: Regular rate and rhythm, S1, S2 without murmur, rub or gallop. ABDOMEN: Soft, Nt, ND, normoactive bowel sounds, no guarding, no rebound, no hepatosplenomegaly, no masses. EXTREMITIES: 2+ pulses, warm, well-perfused, no edema. NEUROLOGICAL: Cranial nerves II through XII grossly intact. Normal speech, gait not observed. PSYCH: Normal mood, normal affect. SKIN: Warm, dry, normal turgor, no rashes or lesions noted CBCD WBC 3.8 K/mm3 (4.0-10.0) L 01/29/20 06:25 RBC 4.74 M/mm3 (4.00-5.60) 01/29/20 06:25 Hgb 11.7 GM/dL (11.7-16.9) 01/29/20 06:25 Hct 36.4 % (35.4-49) 01/29/20 06:25 MCV 76.8 fl (80-96) L 01/29/20 06:25 MCHC 32.3 g/dl (32.0-35.9) 01/29/20 06:25 RDW 16.6 % (11.9-15.9) H 01/29/20 06:25 Plt Count 222 K/MM3 (134-434) 01/29/20 06:25 MPV 8.3 fl (7.5-11.1) 01/29/20 06:25 CMP Sodium 143 mmol/L (136-145) 01/29/20 06:25 Potassium 4.1 mmol/L (3.5-5.1) 01/29/20 06:25 Chloride 111 mmol/L (98-107) H 01/29/20 06:25 Carbon Dioxide 26 mmol/L (21-32) 01/29/20 06:25 Anion Gap 5 MMOL/L (8-16) L 01/29/20 06:25 BUN 12.5 mg/dL (7-18) 01/29/20 06:25 Creatinine 0.9 mg/dL (0.55-1.3) 01/29/20 06:25 Random Glucose 88 mg/dL (74-106) 01/29/20 06:25 Calcium 8.0 mg/dL (8.5-10.1) L 01/29/20 06:25 Total Bilirubin 0.4 mg/dL (0.2-1) 01/29/20 06:25 AST 24 U/L (15-37) 01/29/20 06:25 ALT 23 U/L (13-61) 01/29/20 06:25 Alkaline Phosphatase 43 U/L (45-117) L 01/29/20 06:25 Total Protein 6.5 g/dl (6.4-8.2) 01/29/20 06:25 Albumin 3.0 g/dl (3.4-5.0) L 01/29/20 06:25 CARDIAC ENZYMES Creatine Kinase 197 U/L (26-308) 01/28/20 13:10 Troponin I < 0.02 ng/ml (0.00-0.05) 01/28/20 20:05 Home Medications Medication Instructions Recorded Ferrous Sulfate [Slow Fe] 45 mg PO DAILY 01/16/19 Budesonide [Uceris] 2 mg TP BID 01/28/20 Clomiphene Citrate 50 mg PO Q4D 01/28/20 CT of the head:minimal atherosclerotic disease with no evidence of hemodynamic stenosis ASSESSMENT AND PLAN: Patient is a 49yom with PMHx of ulcerative colitis s/p colonic perforation needing michael-colectomy in 2005, chronic iron def. anemia, GERD, pituitary adenoma, hemorrhoids presents with pre-syncope. #syncopal episode:most likely vasovagal seen by neuro, further w/u as outpatient #UC sp hemicolectomy continue topical Budosenide #GERD: continue PPI # Hx of Pituitary adenoma patient is refusing aspirin since bleeds on aspirin . will follow up with his own drywall finisher foreman for an stress test as an outpatient.
== END 2020-01-29 12:27 | disposition home or self-care (01) | DRG 303 ==
LOC: JER 12:24 → JERBED 14:23 → J4W 18:21
PROVIDERS: ATTEND Internal Medicine
DX: I25.10 Atherosclerotic heart disease of native coronary artery without angina pectoris (principal); R55 Syncope and collapse; D50.9 Iron deficiency anemia, unspecified; K21.9 Gastro-esophageal reflux disease without esophagitis; X58.XXXA Exposure to other specified factors, initial encounter; Y93.9 Activity, unspecified; Y92.838 Other recreation area as the place of occurrence of the external cause; Y99.9 Unspecified external cause status; D64.9 Anemia, unspecified; R73.9 Hyperglycemia, unspecified; D36.9 Benign neoplasm, unspecified site; K64.9 Unspecified hemorrhoids; Z90.49 Acquired absence of other specified parts of digestive tract
CPT/HCPCS: 36415; 70450-TC; 80053; 80061; 80307; 81003; 82550; 82553; 82607; 82747; 82962; 83036; 83540; 83550; 83721; 84443; 84484; 85014; 85025; 87086; 93005; 93010; 93306-TC; 93880-TC; 99285-25; J7030